=== PATIENT | male | born 1970 | race Caucasian/White ===

== ENCOUNTER 2022-07-19 00:05 | Emergency (ER) | payer OTHER ==
[~2022-07-19 00:05] MED LIST: ADMELOG SO100 UNIT/1 SQ; BACLOFEN10 MG PO; BUPRENORPHIN-N1 EACH SL; CARVEDILOL12.5 MG PO; CLONIDINE HCL0.1 MG PO; GABAPENTIN300 MG PO; GABAPENTIN600 MG PO; GLUCAGEN1 MG/1 ML IM; IBU800 MG PO; LANTUS SOL100 UNIT/1 SQ; LISINOPRIL40 MG PO; NICOTINE PATCH1 EAC1 TOP; OMEPRAZOLE40 MG PO; ONDANSETRON HCL4 MG PO; PROMETHAZINE HC25 M1 PO; PROZAC20 MG PO; SYMBICORT 16010.2 GM INH; TRAZODONE HCL50 MG PO
[2022-07-19 02:34] LABS: HEMOGLOBIN 10.1 gm/dl (14.0-17.5); RED BLOOD COUNT 3.61 M/UL (4.20-5.50); WHITE BLOOD COUNT 8.4 K/UL (4.5-11.0)
[2022-07-19 03:08] LABS: BUN/CREATININE RATIO 28 (0-10)
[2022-07-19] MEDS ORDERED: DOXYCYCLINE HY100 MG PO (05:29)
== END 2022-07-19 06:00 | disposition home or self-care (01) ==
LOC: ER1 00:05
PROVIDERS: Physician Assistant
DX: L03.311 Cellulitis of abdominal wall (principal); F17.210 Nicotine dependence, cigarettes, uncomplicated; E11.9 Type 2 diabetes mellitus without complications; I10 Essential (primary) hypertension; Z79.4 Long term (current) use of insulin
CPT/HCPCS: 80053; 81001; 83605; 85025; 85652; 86140; 87086; 99283

== ENCOUNTER 2022-07-23 13:15 | Emergency (ER) | payer OTHER ==
[~2022-07-23 13:15] MED LIST changes: +DOXYCYCLINE HY100 MG PO
[2022-07-23 14:09] LABS: HEMOGLOBIN 10.5 gm/dl (14.0-17.5); RED BLOOD COUNT 3.74 M/UL (4.20-5.50); WHITE BLOOD COUNT 8.7 K/UL (4.5-11.0)
[2022-07-23 14:39] LABS: BUN/CREATININE RATIO 43 (0-10)
== END 2022-07-23 18:13 | disposition home or self-care (01) ==
LOC: ER1 13:15
PROVIDERS: Physician Assistant
DX: E86.0 Dehydration (principal); M79.10 Myalgia, unspecified site; E11.9 Type 2 diabetes mellitus without complications; I10 Essential (primary) hypertension; F17.210 Nicotine dependence, cigarettes, uncomplicated; Z79.4 Long term (current) use of insulin; Z20.822 Contact with and (suspected) exposure to COVID-19
CPT/HCPCS: 71045; 80053; 80307; 82550; 82553; 84484; 85025; 93005; 99284; U0002